=== PATIENT | female | born 1995 | race Caucasian/White ===

== ENCOUNTER → 2017-02-24 16:38 | Emergency (ER) | payer OTHER ==
[~2017-02-24 16:38] MED LIST: AZITHROMYCIN250 MG PO; BACTRIM DS TABL1 TA1 PO; CLEOCIN PO; CLONIDINE HCL0.1 MG PO; DOXYCYCLINE HY100 M3 PO; DOXYCYCLINE150 MG PO; FLAGYL PO; IBUPROFEN800 MG PO; IMODIUM A-D2 M1 PO; LIDOCAINE VISCOU1 ML EXT
== END | disposition home or self-care (01) ==
LOC: CFTX 16:38
DX: J06.9 Acute upper respiratory infection, unspecified (principal); I10 Essential (primary) hypertension; Z88.1 Allergy status to other antibiotic agents; Z88.0 Allergy status to penicillin; Z91.040 Latex allergy status; Z91.018 Allergy to other foods
CPT/HCPCS: 99282